=== PATIENT | male | born 1960 | race Caucasian/White ===

== ENCOUNTER 2016-08-27 01:12 | Emergency (ER) | payer OTHER ==
[~2016-08-27] VITALS: Ht 195.6 cm; Wt 193.2 kg
[~2016-08-27 01:12] MED LIST: ATORVASTATIN CA10 MG PO; BACTRIM,SEPT1 TABLET PO; CELEXA40 MG PO; GABAPENTIN300 MG PO; GEMFIBROZIL600 MG PO; HYDROCODON-ACE1 EAC5 PO; KEFLEX500 MG PO; LEVAQUIN750 MG PO; LISINOPRIL10 MG PO; LOW DOSE ASPIRI81 M1 PO; METFORMIN HCL500 MG PO; NAPROSYN500 MG PO; PERCOCET 5/31 TABLET PO; PERCOCET 7.51 TABLET PO; SYNTHROID100 MCG PO; SYNTHROID50 MCG PO; ULTRAM50 MG PO; UNITHROID125 MCG PO
[2016-08-27 01:15] VITALS: BP 133/87
[2016-08-27 01:48] LABS: HEMATOCRIT 50.6 % (38.0-50.0); MCH 31.9 PG (29.0-34.0); MCHC 34.2 G/DL (30.0-36.0); MCV 93.2 FL (86-99); MEAN PLAT.VOLUME 10.3 uM^3 (9.0-12.4); PLATELET COUNT 241 K/uL (156-360); RBC DIS.WIDTH-CV 13.5 % (11.8-14.6); RBC DIS.WIDTH-SD 44.5 % (39-53); RED BLOOD COUNT 5.43 M/uL (4.00-5.50); WHITE BLOOD COUNT 10.6 K/uL (4.1-10.2)
[2016-08-27 01:58] LABS: CHLORIDE 101 mEq/L (99-109); POTASSIUM 4.3 mEq/L (3.7-5.4); SODIUM 138 mEq/L (136-147)
[2016-08-27 02:00] LABS: GLUCOSE 94 mg/dL (70-99)
[2016-08-27 02:01] LABS: ANION GAP 13 MEQ/L (2-14)
[2016-08-27 02:02] LABS: TOTAL BILIRUBIN 0.5 mg/dL (0.0-1.0)
[2016-08-27 02:04] LABS: ALKALINE PHOSPHATASE 96 IU/L (3-129); GFR ESTIMATE (CALCULATED) 56 mL/min/
[2016-08-27 02:05] LABS: UREA NITROGEN (BUN) 14 mg/dL (9-23)
[2016-08-27] MEDS ORDERED: GABAPENTIN800 MG PO (11:32)
[2016-08-27] MEDS ORDERED: LEVOTHYROXINE112 MCG PO (11:33)
== END 2016-08-27 03:17 | disposition left against medical advice (07) ==
LOC: EME 01:12
DX: R10.9 Unspecified abdominal pain (principal); Z53.21 Procedure and treatment not carried out due to patient leaving prior to being seen by health care provider
CPT/HCPCS: 80053; 81003; 85027

== ENCOUNTER 2016-08-27 06:15 | Inpatient (IN) | payer OTHER ==
[~2016-08-27] VITALS: Ht 195.6 cm; Wt 188.3 kg
[2016-08-27] MEDS ORDERED: GABAPENTIN800 MG PO (11:32)
[2016-08-27] MEDS ORDERED: LEVOTHYROXINE112 MCG PO (11:33)
[2016-08-27 14:20] LABS: POINT-OF-CARE METER ID UU13113702
[2016-08-27 14:28] VITALS: BP 121/72
[2016-08-27 19:30] VITALS: BP 130/80
[2016-08-27 23:31] VITALS: BP 115/58
[2016-08-28 04:00] VITALS: BP 147/88
[2016-08-28 06:12] LABS: MCH 31.7 PG (29.0-34.0); RBC DIS.WIDTH-CV 13.7 % (11.8-14.6); RBC DIS.WIDTH-SD 48.4 % (39-53); RED BLOOD COUNT 5.52 M/uL (4.00-5.50); WHITE BLOOD COUNT 9.3 K/uL (4.1-10.2)
[2016-08-28 06:45] LABS: MEAN PLAT.VOLUME 10.5 uM^3 (9.0-12.4)
[2016-08-28 06:47] LABS: PLATELET COUNT 118 K/uL (156-360)
[2016-08-28 07:42] VITALS: BP 124/76
[2016-08-28 08:45] LABS: ANION GAP 9 MEQ/L (2-14); CHLORIDE 103 MEQ/L (99-109); GFR ESTIMATE (CALCULATED) > 59 mL/min/; MAGNESIUM 2.1 mg/dl (1.3-2.7); POTASSIUM 4.1 MEQ/L (3.7-5.4); SAMPLE HEMOLYSIS CHECK 0; SAMPLE ICTERIC CHECK 0; SAMPLE LIPEMIA CHECK 0; SODIUM 142 MEQ/L (136-147); UREA NITROGEN (BUN) 17 mg/dL (9-23)
[2016-08-28 08:46] LABS: GLUCOSE 118 mg/dL (70-99)
[2016-08-28 15:44] VITALS: BP 136/80
[2016-08-28 19:35] VITALS: BP 134/89
[2016-08-28 23:34] VITALS: BP 110/60
[2016-08-29 03:09] VITALS: BP 134/85
[2016-08-29 08:29] VITALS: BP 132/75
[2016-08-29 13:16] LABS: HEMATOCRIT 51.3 % (38.0-50.0); MCH 32.5 PG (29.0-34.0); MCHC 34.1 G/DL (30.0-36.0); MCV 95.2 FL (86-99); RBC DIS.WIDTH-CV 13.7 % (11.8-14.6); RBC DIS.WIDTH-SD 47.1 % (39-53); RED BLOOD COUNT 5.39 M/uL (4.00-5.50); WHITE BLOOD COUNT 10.8 K/uL (4.1-10.2)
[2016-08-29 13:23] LABS: MEAN PLAT.VOLUME 10.9 uM^3 (9.0-12.4)
[2016-08-29 13:25] LABS: PLATELET COUNT 207 K/uL (156-360)
[2016-08-29 13:34] LABS: ANION GAP 11 MEQ/L (2-14); CHLORIDE 99 MEQ/L (99-109); POTASSIUM 4.1 MEQ/L (3.7-5.4); SAMPLE HEMOLYSIS CHECK 0; SAMPLE ICTERIC CHECK 0; SAMPLE LIPEMIA CHECK 0; SODIUM 139 MEQ/L (136-147)
[2016-08-29 13:40] LABS: GFR ESTIMATE (CALCULATED) 51 mL/min/; GLUCOSE 117 mg/dL (70-99); UREA NITROGEN (BUN) 23 mg/dL (9-23)
[2016-08-29 16:13] VITALS: BP 104/60
[2016-08-29 19:35] VITALS: BP 95/58
[2016-08-30 00:01] VITALS: BP 110/61
[2016-08-30 03:50] VITALS: BP 129/83
[2016-08-30 07:28] VITALS: BP 121/65
[2016-08-30 15:58] VITALS: BP 120/85
[2016-08-30 23:11] VITALS: BP 110/56
[2016-08-31 07:21] VITALS: BP 113/76
[2016-08-31 09:10] LABS: HEMATOCRIT 50.7 % (38.0-50.0); MCHC 35.5 G/DL (30.0-36.0); MEAN PLAT.VOLUME 11.5 uM^3 (9.0-12.4); PLATELET COUNT 241 K/uL (156-360); RBC DIS.WIDTH-CV 13.1 % (11.8-14.6); RBC DIS.WIDTH-SD 44.4 % (39-53); RED BLOOD COUNT 5.45 M/uL (4.00-5.50); WHITE BLOOD COUNT 10.1 K/uL (4.1-10.2)
[2016-08-31 09:46] LABS: ANION GAP 16 MEQ/L (2-14); GLUCOSE 116 mg/dL (70-99); POTASSIUM 4.1 MEQ/L (3.7-5.4); SAMPLE HEMOLYSIS CHECK 0; SAMPLE ICTERIC CHECK 0; SAMPLE LIPEMIA CHECK 0; SODIUM 135 MEQ/L (136-147)
[2016-08-31 09:51] LABS: CHLORIDE 86 MEQ/L (99-109); GFR ESTIMATE (CALCULATED) 29 mL/min/; UREA NITROGEN (BUN) 45 mg/dL (9-23)
[2016-08-31 16:58] VITALS: BP 82/47
[2016-08-31 21:03] VITALS: BP 139/63
== END 2016-08-31 23:00 | disposition left against medical advice (07) | DRG 389 ==
LOC: EME → EDBD 06:15 → EME 06:15 → EDOF 10:57 → 5EAST 10:57 → EDOF 10:57 → 5EAST 14:19
PROVIDERS: Physician Assistant; Surgery
DX: K56.60 Unspecified intestinal obstruction (principal); Z68.42 Body mass index [BMI] 45.0-49.9, adult; E66.01 Morbid (severe) obesity due to excess calories; E03.9 Hypothyroidism, unspecified; F41.9 Anxiety disorder, unspecified; F17.200 Nicotine dependence, unspecified, uncomplicated; I12.9 Hypertensive chronic kidney disease with stage 1 through stage 4 chronic kidney disease, or unspecified chronic kidney disease; N18.3 Chronic kidney disease, stage 3 (moderate); Z98.890 Other specified postprocedural states
CPT/HCPCS: 71010; 74000; 74177; 80048; 80053; 81003; 82948; 83735; 84100; 85027; 94799; 99281; 99284; J1170; J2270; J2405; J7030; S0028

== ENCOUNTER 2016-09-01 14:12 | Inpatient (IN) | payer OTHER ==
[~2016-09-01] VITALS: Ht 195.6 cm; Wt 182.0 kg
[~2016-09-01 14:12] MED LIST changes: +GABAPENTIN800 MG PO; +LEVOTHYROXINE112 MCG PO
[2016-09-01 15:16] LABS: HEMATOCRIT 49.1 % (38.0-50.0); MCH 32.2 PG (29.0-34.0); MCHC 35.4 G/DL (30.0-36.0); MCV 90.8 FL (86-99); MEAN PLAT.VOLUME 10.6 uM^3 (9.0-12.4); PLATELET COUNT 273 K/uL (156-360); RBC DIS.WIDTH-CV 12.9 % (11.8-14.6); RBC DIS.WIDTH-SD 42.5 % (39-53); RED BLOOD COUNT 5.41 M/uL (4.00-5.50)
[2016-09-01 15:24] LABS: POTASSIUM 3.3 mEq/L (3.7-5.4); SODIUM 136 mEq/L (136-147)
[2016-09-01 15:25] LABS: GLUCOSE 104 mg/dL (70-99)
[2016-09-01 15:27] LABS: ANION GAP 16 MEQ/L (2-14)
[2016-09-01 15:30] LABS: UREA NITROGEN (BUN) 38 mg/dL (9-23)
[2016-09-01 15:33] LABS: CHLORIDE 90 mEq/L (99-109); GFR ESTIMATE (CALCULATED) 37 mL/min/
[2016-09-01 22:45] VITALS: BP 115/64
[2016-09-01 23:00] VITALS: BP 115/64
[2016-09-02 04:57] VITALS: BP 114/67
[2016-09-02 05:09] LABS: HEMATOCRIT 47.7 % (38.0-50.0); MCH 31.4 PG (29.0-34.0); MCHC 33.5 G/DL (30.0-36.0); MCV 93.5 FL (86-99); MEAN PLAT.VOLUME 11.2 uM^3 (9.0-12.4); PLATELET COUNT 219 K/uL (156-360); RBC DIS.WIDTH-CV 13.1 % (11.8-14.6); RBC DIS.WIDTH-SD 44.5 % (39-53); WHITE BLOOD COUNT 9.4 K/uL (4.1-10.2)
[2016-09-02 05:53] LABS: ANION GAP 14 MEQ/L (2-14); CHLORIDE 88 MEQ/L (99-109); GFR ESTIMATE (CALCULATED) 45 mL/min/; GLUCOSE 76 mg/dL (70-99); POTASSIUM 3.2 MEQ/L (3.7-5.4); SAMPLE HEMOLYSIS CHECK 0; SAMPLE ICTERIC CHECK 0; SAMPLE LIPEMIA CHECK 0; SODIUM 136 MEQ/L (136-147); UREA NITROGEN (BUN) 37 mg/dL (9-23)
[2016-09-02 08:03] VITALS: BP 110/68
[2016-09-02 12:35] VITALS: BP 143/67
[2016-09-02 16:06] VITALS: BP 113/65
[2016-09-02 23:38] VITALS: BP 123/75
[2016-09-03 06:02] LABS: HEMATOCRIT 45.8 % (38.0-50.0); MCH 32.7 PG (29.0-34.0); MCHC 34.3 G/DL (30.0-36.0); MCV 95.4 FL (86-99); MEAN PLAT.VOLUME 11.2 uM^3 (9.0-12.4); PLATELET COUNT 185 K/uL (156-360); RBC DIS.WIDTH-CV 12.9 % (11.8-14.6); RBC DIS.WIDTH-SD 45.4 % (39-53); WHITE BLOOD COUNT 7.1 K/uL (4.1-10.2)
[2016-09-03 07:47] LABS: ANION GAP 12 MEQ/L (2-14); CHLORIDE 91 MEQ/L (99-109); GFR ESTIMATE (CALCULATED) 56 mL/min/; GLUCOSE 64 mg/dL (70-99); SAMPLE HEMOLYSIS CHECK 0; SAMPLE ICTERIC CHECK 0; SAMPLE LIPEMIA CHECK 0; SODIUM 140 MEQ/L (136-147); UREA NITROGEN (BUN) 23 mg/dL (9-23)
[2016-09-03 07:48] LABS: POTASSIUM 3.9 MEQ/L (3.7-5.4)
== END 2016-09-03 06:55 | disposition left against medical advice (07) | DRG 389 ==
LOC: EME 14:12 → 3EAST 21:34 → EDOF 21:34 → 3EAST 22:33
PROVIDERS: Emergency Medicine; Thoracic Surgery (Cardiothoracic Vascular Surgery)
DX: K56.5 Intestinal adhesions [bands] with obstruction (postinfection) (principal); Z68.42 Body mass index [BMI] 45.0-49.9, adult; F32.9 Major depressive disorder, single episode, unspecified; E66.01 Morbid (severe) obesity due to excess calories; E11.9 Type 2 diabetes mellitus without complications; E78.5 Hyperlipidemia, unspecified; E03.9 Hypothyroidism, unspecified; F17.200 Nicotine dependence, unspecified, uncomplicated; Z85.51 Personal history of malignant neoplasm of bladder; E87.6 Hypokalemia
CPT/HCPCS: 74176; 80048; 85027; 99281; 99285; J1650; J2270; J2405; J7030; J7120

== ENCOUNTER 2016-09-04 01:13 | Emergency (ER) | payer OTHER ==
[~2016-09-04] VITALS: Ht 195.6 cm; Wt 181.3 kg
[2016-09-04 01:21] VITALS: BP 96/77
== END 2016-09-04 04:14 | disposition left against medical advice (07) ==
LOC: EME 01:13
DX: K59.00 Constipation, unspecified (principal); Z53.21 Procedure and treatment not carried out due to patient leaving prior to being seen by health care provider

== ENCOUNTER 2016-09-04 10:18 | Emergency (ER) | payer OTHER ==
[~2016-09-04] VITALS: Ht 195.6 cm; Wt 181.8 kg
[2016-09-04 11:03] LABS: HEMATOCRIT 47.5 % (38.0-50.0); MCH 31.7 PG (29.0-34.0); MCHC 34.7 G/DL (30.0-36.0); MEAN PLAT.VOLUME 10.5 uM^3 (9.0-12.4); PLATELET COUNT 237 K/uL (156-360); RBC DIS.WIDTH-CV 12.7 % (11.8-14.6); RBC DIS.WIDTH-SD 41.8 % (39-53); RED BLOOD COUNT 5.21 M/uL (4.00-5.50)
[2016-09-04 11:04] LABS: MCV 91.2 FL (86-99); WHITE BLOOD COUNT 15.8 K/uL (4.1-10.2)
[2016-09-04 11:11] LABS: CHLORIDE 86 mEq/L (99-109); SODIUM 134 mEq/L (136-147)
[2016-09-04 11:14] LABS: ANION GAP 15 MEQ/L (2-14); GLUCOSE 92 mg/dL (70-99); POTASSIUM 3.1 mEq/L (3.7-5.4)
[2016-09-04 11:16] LABS: GFR ESTIMATE (CALCULATED) 45 mL/min/
[2016-09-04 11:17] LABS: UREA NITROGEN (BUN) 22 mg/dL (9-23)
[2016-09-04 13:57] LABS: BASOPHIL COUNT 0.1 K/uL (0-0.1); EOSINOPHIL COUNT 0.2 K/uL (0-0.3); IMMATURE GRANULOCYTE (%) 0.4 % (0.0-0.7); IMMATURE GRANULOCYTE COUNT 0.6 K/uL; LYMPHOCYTE COUNT 2.3 K/uL (1.0-2.8); MONOCYTE COUNT 1.4 K/uL (0-0.8); NEUTROPHIL (%) 74.6 % (45-76); NEUTROPHIL COUNT 11.8 K/uL (1.8-6.4)
[2016-09-04 13:58] LABS: HEMATOLOGY COMMENT 1 SMEAR COMPATIBLE; USER ID SDF
[2016-09-04 14:10] VITALS: BP 110/60
== END 2016-09-04 14:12 | disposition home or self-care (01) ==
LOC: EME → EDBD 10:18 → EME 10:18
PROVIDERS: Emergency Medicine
DX: K56.60 Unspecified intestinal obstruction (principal); E87.6 Hypokalemia; E11.9 Type 2 diabetes mellitus without complications; E78.5 Hyperlipidemia, unspecified; I10 Essential (primary) hypertension; E03.9 Hypothyroidism, unspecified; Z85.51 Personal history of malignant neoplasm of bladder; F17.200 Nicotine dependence, unspecified, uncomplicated
CPT/HCPCS: 74020; 74176; 80048; 83605; 85025; 99281; 99285; J7030